=== PATIENT | female | born 1940 | race Caucasian/White ===

== ENCOUNTER 2019-04-09 17:17 | Inpatient (IN) ==
--- NOTE | 2019-04-09 17:35 | ERNOTE ---
Neuro HPI ER Record Presenting Symptoms: other - loc and seizures in ambulance Time Seen by Provider: 04/09/19 17:25 Source: family, EMS Exam Limitations: no limitations Allergies/Adverse Reactions: Allergies Allergy/AdvReac Type Severity Reaction Status Date / Time No Known Allergies Allergy Verified 01/17/18 09:40 Home Medications: HOME MEDICATIONS memantine 10 mg tablet 10 mg PO BID 01/17/18 [Last Taken Unknown] ALPRAZolam [Xanax] 0.25 mg PO TID PRN 04/09/19 [Last Taken Unknown] Donepezil HCl 10 mg PO DAILY 04/09/19 [Last Taken Unknown] Pravastatin Sodium 40 mg pe PO DAILY 04/09/19 [Last Taken Unknown] Sertraline HCl [Zoloft] 100 mg pe PO DAILY 04/09/19 [Last Taken Unknown] - History of Present Illness Narrative: History is per her . states that patient is normally quite active with him going for daily walks and she is verbal although confused with her dementia. Yesterday she did become a little more agitated and irritated, not wanting to walk or do things that he asked her to do. Because of this he did start giving her alprazolam, half a tab 3 times daily which did seem to calm her down. He gave her dose this morning she walked with him, talk to him and all of a sudden this afternoon she just sat down. At that point she lost consciousness, was coughing up frothy sputum but no reported seizure disorder. She had no other complaints to this point. EMS was called and transported her to our ER. While in the ambulance she was noted to actively seize and was given nasal versed, half a dose in each nare. She has remained unresponsive since in our ER. But does localize to pain. - Character of Deficits Baseline Cognition: Present: alert but confused Baseline Gait: Present: walks w/o assistance Associated Symptoms: Reports: seizure, decreased responsiveness. Denies: fever/chills Review of Systems - Review of Systems Constitutional: Present: weakness. Absent: fever, chills EYE: Present: no symptoms reported ENT: Present: no symptoms reported Respiratory: Present: cough Cardiology: Absent: chest pain, palpitations Gastrointestinal/Abdominal: Absent: vomiting, diarrhea, eating less Genitourinary: Present: no symptoms reported Musculoskeletal: Present: no symptoms reported Skin: Present: no symptoms reported Neurological: Present: other - does have dementia. Absent: seizure, pre- existing deficit Endocrine: Present: no symptoms reported Hematologic/Lymphatic: Present: no symptoms reported Psych: Present: anxiety Medical History (Last Reviewed 04/09/19 @ 18:55 by Josh Richard MD) Hypocholesterolemia (Chronic) Onset Date: Unknown Depression (Chronic) Onset Date: Unknown Alzheimer disease (Chronic) Onset Date: Unknown Surgical History: Surgical History (Last Reviewed 04/09/19 @ 18:55 by Josh Richard MD) History of carpal tunnel release Onset Date: Unknown History of hysterectomy Onset Date: ~2002 Family History: Family History (Last Reviewed 04/09/19 @ 18:55 by Josh Richard MD) Father Diabetes Mother Diabetes Social History: (Last Reviewed 04/09/19 @ 18:55 by Josh Richard MD) Social History: Marital status: Service: No Tobacco: Smoking Status: Former smoker Alcohol: alcohol intake: never Substance Use: substance use type: does not use Dietary Habits: caffeine: Yes Physical Exam - Physical Exam General Appearance: Present: no apparent distress, other - unresponsive except to painful stimuli, stiff extremities. Head Exam: Present: normal inspection, no evidence of injury Eye Exam: PERRL: bilateral - pupils pinpoint christina, with questionable lateral movement following light, but no superior or inferior gaze. Ears, Nose, Throat: Present: normal ENT inspection, dry mucous membranes, other - dental caries on lower left canine Neck: Present: normal inspection, supple Respiratory: Present: no respiratory distress, normal breath sounds, no accessory muscle use, lungs clear Gastrointestinal/Abdominal: Present: normal bowel sounds, nontender, nondistended, soft, no organomegaly Extremity Exam: Present: normal inspection Neurological Exam: Present: other - still extremities. has gag reflex. normal babinski Skin Exam: Present: normal color, warm/dry Lymphatic Exam: Present: no adenopathy Anup Coma Scale - Assess Eye Opening: None Motor: Localizes to Pain Verbal: Confused - Total Coma Scale Total: 10 Progress - Results and Orders Patient's Lab Results:: I have reviewed the patient's lab results. - Vital Signs Patient's Vital Signs:: I have reviewed the patient's vital signs. - X-Ray X-Ray #1 X-Ray: chest Interpretation: Interp. by me X-ray Comments: negative for pneumonia or CHF - CT/Ultrasound CT/Ultrasound Narrative: Global parenchymal loss and chronic microvascular disease, no acute bleed. NPH cannot be excluded. - Progress/Reassessment Chief Complaint: Loss of Consciousness Progress:: Unchanged Progress Note-Subjective: 04/09/19 20:09 Pt. did wake up after starting NS bolus and did verbalize and open eyes. She did this briefly and then once again closed eyes and would only respond to painful stimuli. HR has come down into the 50's after fluid bolus, though BP's remain in the 90's. Repeat EKG showed bradycardia but sinus rhythm. 04/09/19 20:25 Case was discussed with Dr. Fan. Given patient's decreased level of consciousness, new onset seizures and hypernatremia will admit acute inpatient. 04/09/19 21:36 pt. continued to have issues with maintaining systolic blood pressures in her normal range of > 100. An additional bolus of NS was started and her SBP went up into the 130's and she was more alert, so reduced the rate to 100ml/hr and transfered her to the floor. - Transfer of Care Expected Disposition: Admit Plan - Plan Plan: Plan to admit to acute inpatient for IV fluids, correction of her hypernatremia and monitor for any further seizures and to be sure she returns to baseline status of being ambulatory. She may need PT, but will defer to admitting physician to assess for this. Departure Clinical Impression: Seizure, Loss of consciousness, Hypernatremia - Departure Disposition: Still a patient Condition: Poor
[2019-04-09 17:42] LABS: Cocaine Ur Negative (NEGATIVE); Urine Barbiturate Negative (NEGATIVE); Urine Benzodiazepines Negative (NEGATIVE); Urine Opiates Negative (NEGATIVE); Urine PCP Negative (NEGATIVE); Urine THC Negative (NEGATIVE)
[2019-04-09 17:44] LABS: Urine Appearance Clear (CLEAR); Urine Bilirubin Negative (NEGATIVE); Urine Color Yellow; Urine Ketone Negative (NEGATIVE)
[2019-04-09 17:45] LABS: Hematocrit 41.4 % (37.0-47.0); Hemoglobin 12.9 gm/dL (12.5-16.0); Mean Cell Volume 97.6 fl (78-100); Mean Corpuscular Hemoglobin 30.4 pg (27-31); Mean Corpuscular Hgb Conc 31.2 g/dl (32-36); Mean Platelet Volume 10.5 fl (8-12.5); Neutrophil # 2.3 K/mm3 (1.3-6.0); Neutrophil % 58.2 % (42-75.0); Platelet Count 150 K/mm3 (150-450); Red Blood Count 4.24 M/mm3 (4.2-5.4); Red Cell Distribution Width 14.1 % (11.5-14.0); Urine Bacteria None Seen; Urine Blood 5 /ul (NEGATIVE); Urine Nitrite Negative (NEGATIVE); Urine Protein 100 mg/dL (NEGATIVE); Urine RBC None Seen /hpf (0-5); Urine Urobilinogen Normal (NORMAL); Urine WBC 0-5 /hpf (0-5); Urine pH 5.5 pH (5.0-7.0)
[2019-04-09 18:14] LABS: ALT 65 U/L (19-67); AST 51 U/L (0-48); Albumin * 3.2 gm/dl (3.4-5.0); Alkaline Phosphatase * 100 U/L (50-170); Anion Gap 15.5 mmol/L (6.8-13.8); BUN/Creatinine Ratio 35.3 (9.0-21.6); Bilirubin, Total 0.2 mg/dL (0.0-1.1); Blood Urea Nitrogen 30 mg/dL (3-23); Ca. Corrected For Albumin 9.2 mg/dL (8.4-10.2); Calcium * 8.9 mg/dL (7.9-10.9); Carbon Dioxide 29.5 mmol/L (24-32.6); Chloride 108 mmol/L (97-106); Glucose * 132 mg/dL (70-110); Sodium 149 mmol/L (132-142); Total Protein 6.7 gm/dL (6.2-8.2); Troponin I Less than 0.017 ng/mL (0.00-0.10)
[2019-04-09] MEDS ORDERED: DEXTROSE 5 % IN WATER 1,000 ML IV PRN (18:41)
[2019-04-09] MEDS ORDERED: NORMAL SALINE 1,000 ML IV PRN ×2 (19:02→21:29)
[2019-04-09] MEDS ORDERED: NORMAL SALINE 1,000 ML IV ONE (20:49)
[2019-04-09] MEDS ORDERED: ALPRAZolam 0.25 MG TABLET PO PRN (22:06)
[2019-04-09] MEDS: MEMANTINE HCL 10 MG TABLET PO SCH (22:27)
[2019-04-09] MEDS ORDERED: SIMVASTATIN 20 MG TABLET PO SCH (23:00)
[2019-04-09] MEDS ORDERED: SERTRALINE HCL 50 MG TABLET PO SCH (23:00)
[2019-04-10 06:40] LABS: Albumin * 2.6 gm/dl (3.4-5.0); Anion Gap 11.6 mmol/L (6.8-13.8); BUN/Creatinine Ratio 35.5 (9.0-21.6); Bilirubin, Total 0.3 mg/dL (0.0-1.1); Ca. Corrected For Albumin 8.9 mg/dL (8.4-10.2); Calcium * 8.1 mg/dL (7.9-10.9); Carbon Dioxide 29.2 mmol/L (24-32.6); Potassium 3.8 mmol/L (3.4-4.6); Total Protein 5.5 gm/dL (6.2-8.2)
[2019-04-10] MEDS ORDERED: DONEPEZIL HCL 10 MG TABLET PO SCH (09:00)
[2019-04-10] MEDS: MEMANTINE HCL 10 MG TABLET PO SCH (09:21)
--- NOTE | 2019-04-10 09:23 | HP ---
Chief Complaint - Chief Complaint Date of Service: 04/10/19 Time of Service: 09:22 Medical History (Last Reviewed 04/09/19 @ 22:09 by Patrick Cm RN) Hypocholesterolemia (Chronic) Onset Date: Unknown Depression (Chronic) Onset Date: Unknown Alzheimer disease (Chronic) Onset Date: Unknown Surgical History: Surgical History (Last Reviewed 04/09/19 @ 22:09 by Patrick Cm RN) History of carpal tunnel release Onset Date: Unknown History of hysterectomy Onset Date: ~2002 Family History: Family History (Last Reviewed 04/09/19 @ 22:09 by Patrick Cm RN) Father Diabetes Mother Diabetes Social History: (Last Reviewed 04/09/19 @ 22:09 by Patrick Cm RN) Social History: Marital status: Service: No Tobacco: Smoking Status: Former smoker Alcohol: alcohol intake: never Substance Use: substance use type: does not use Dietary Habits: caffeine: Yes Allergies/Adverse Reactions: Allergies Allergy/AdvReac Type Severity Reaction Status Date / Time No Known Allergies Allergy Verified 04/09/19 22:09 Home Medications: HOME MEDICATIONS memantine 10 mg tablet 10 mg PO BID 01/17/18 [Last Taken Unknown] ALPRAZolam [Xanax] 0.25 mg PO TID PRN 04/09/19 [Last Taken Unknown] Donepezil HCl 10 mg PO DAILY 04/09/19 [Last Taken Unknown] Pravastatin Sodium 40 mg pe PO DAILY 04/09/19 [Last Taken Unknown] Sertraline HCl [Zoloft] 100 mg pe PO DAILY 04/09/19 [Last Taken Unknown] Exam - Exam Vital Signs: Vital Signs - Last Taken Temp 36.4 C 04/10/19 06:32 Pulse 64 04/10/19 06:32 Resp 10 L 04/10/19 06:32 BP 92/41 04/10/19 06:32 Pulse Ox 96 04/10/19 06:32 Diagnostic Studies: Abnormal Lab Results 04/09/19 04/09/19 04/09/19 Range/Units 17:30 17:30 17:30 MCHC 31.2 L (32-36) g/dl RDW 14.1 H (11.5-14.0) % Immature Gran % (Auto) 1.00 H (0.001-0.429) % Immature Gran # (Auto) 0.04 H (0.000-0.0310) K/mm3 Lymphocytes # 1.22 L (1.5-3.5) k/mm3 Sodium 149 H (132-142) mmol/L Plasma Sodium 150 H (130-142) mmol/L Chloride 108 H (97-106) mmol/L Anion Gap 15.5 H (6.8-13.8) mmol/L BUN 30 H (3-23) mg/dL BUN/Creatinine Ratio 35.3 H (9.0-21.6) Random Glucose 132 H (70-110) mg/dL AST 51 H (0-48) U/L Total Protein (6.2-8.2) gm/dL Albumin 3.2 L (3.4-5.0) gm/dl Urine Protein 100 H (NEGATIVE) mg/dL Urine Blood 5 H (NEGATIVE) /ul Prot Sulfosalicylic Acd 4+ H (0) mg/dL 04/10/19 Range/Units 06:08 MCHC (32-36) g/dl RDW (11.5-14.0) % Immature Gran % (Auto) (0.001-0.429) % Immature Gran # (Auto) (0.000-0.0310) K/mm3 Lymphocytes # (1.5-3.5) k/mm3 Sodium 145 H (132-142) mmol/L Plasma Sodium 145 H (130-142) mmol/L Chloride 108 H (97-106) mmol/L Anion Gap (6.8-13.8) mmol/L BUN (3-23) mg/dL BUN/Creatinine Ratio 35.5 H (9.0-21.6) Random Glucose (70-110) mg/dL AST (0-48) U/L Total Protein 5.5 L (6.2-8.2) gm/dL Albumin 2.6 L (3.4-5.0) gm/dl Urine Protein (NEGATIVE) mg/dL Urine Blood (NEGATIVE) /ul Prot Sulfosalicylic Acd (0) mg/dL Laboratory Results WBC 4.0 K/mm3 (4.0-10.5) 04/09/19 17:30 RBC 4.24 M/mm3 (4.2-5.4) 04/09/19 17:30 Hgb 12.9 gm/dL (12.5-16.0) 04/09/19 17:30 Hct 41.4 % (37.0-47.0) 04/09/19 17:30 MCV 97.6 fl (78-100) 04/09/19 17:30 MCH 30.4 pg (27-31) 04/09/19 17: MCHC 31.2 g/dl (32-36) L 04/09/19 17:30 RDW 14.1 % (11.5-14.0) H 04/09/19 17:30 Plt Count 150 K/mm3 (150-450) 04/09/19 17:30 MPV 10.5 fl (8-12.5) 04/09/19 17:30 Immature Gran % (Auto) 1.00 % (0.001-0.429) H 04/09/19 17: Immature Gran # (Auto) 0.04 K/mm3 (0.000-0.0310) H 04/09/19 17:30 Neutrophils % 58.2 % (42-75.0) 04/09/19 17:30 Lymphocytes % 30.7 % (20-51) 04/09/19 17:30 Monocytes % 8.3 % (0.0-9) 04/09/19 17:30 Eosinophils % 1.0 % (0.0-3.0) 04/09/19 17: Basophils % 0.8 % (0.0-1.0) 04/09/19 17: Nucleated RBC % 0.0 k/mm3 (0-1) 04/09/19 17:30 Neutrophils # 2.3 K/mm3 (1.3-6.0) 04/09/19 17:30 Lymphocytes # 1.22 k/mm3 (1.5-3.5) L 04/09/19 17: Monocytes # 0.3 k/mm3 (0.0-1.0) 04/09/19 17: Eosinophils # 0.0 k/mm3 (0.0-0.7) 04/09/19 17: Absolute Basophils 0.0 k/mm3 (0.0-0.1) 04/09/19 17:30 Sodium 145 mmol/L (132-142) H 04/10/19 06:08 Plasma Sodium 145 mmol/L (130-142) H 04/10/19 06:08 Potassium 3.8 mmol/L (3.4-4.6) 04/10/19 06:08 Chloride 108 mmol/L (97-106) H 04/10/19 06:08 Carbon Dioxide 29.2 mmol/L (24-32.6) 04/10/19 06:08 Anion Gap 11.6 mmol/L (6.8-13.8) 04/10/19 06:08 BUN 22 mg/dL (3-23) 04/10/19 06:08 Creatinine 0.62 mg/dL (0.4-1.4) 04/10/19 06:08 Est GFR (Non-Af Amer) 99 mL/min (60-130) D 04/10/19 06:08 BUN/Creatinine Ratio 35.5 (9.0-21.6) H 04/10/19 06:08 Random Glucose 108 mg/dL (70-110) 04/10/19 06:08 Calcium 8.1 mg/dL (7.9-10.9) 04/10/19 06:08 Calcium Adj for Albumin 8.9 mg/dL (8.4-10.2) 04/10/19 06:08 Total Bilirubin 0.3 mg/dL (0.0-1.1) 04/10/19 06:08 AST 39 U/L (0-48) 04/10/19 06:08 ALT 51 U/L (19-67) 04/10/19 06:08 Alkaline Phosphatase 81 U/L (50-170) 04/10/19 06:08 Troponin I Less than 0.017 ng/mL (0.00-0.10) 04/09/19 17:30 Total Protein 5.5 gm/dL (6.2-8.2) L 04/10/19 06:08 Albumin 2.6 gm/dl (3.4-5.0) L 04/10/19 06:08 Urine Color Yellow 04/09/19 17:30 Urine Appearance Clear (CLEAR) 04/09/19 17:30 Urine pH 5.5 pH (5.0-7.0) 04/09/19 17:30 Ur Specific [place] 1.030 SP.GR. (1.005-1.010) 04/09/19 17:30 Urine Protein 100 mg/dL (NEGATIVE) H 04/09/19 17:30 Urine Glucose (UA) Negative mg/dL (NEGATIVE) 04/09/19 17:30 Urine Ketones Negative mg/dL (NEGATIVE) 04/09/19 17:30 Urine Blood 5 /ul (NEGATIVE) H 04/09/19 17:30 Urine Nitrate Negative (NEGATIVE) 04/09/19 17:30 Urine Bilirubin Negative mg/dl (NEGATIVE) 04/09/19 17:30 Prot Sulfosalicylic Acd 4+ mg/dL (0) H 04/09/19 17:30 Urine Urobilinogen Normal EU/dl (NORMAL) 04/09/19 17:30 Ur Leukocyte Esterase Negative /ul (NEGATIVE) 04/09/19 17:30 Urine RBC None seen /hpf (0-5) 04/09/19 17:30 Urine WBC 0-5 /hpf (0-5) 04/09/19 17:30 Ur Epithelial Cells 0-5 /hpf (0-5) 04/09/19 17:30 Urine Bacteria None seen (NONE) 04/09/19 17:30 Urine Culture Comments No culture indicated 04/09/19 17:30 Urine Opiates Screen Negative (NEGATIVE) 04/09/19 17:30 Barbiturate Screen Negative (NEGATIVE) 04/09/19 17:30 Ur Phencyclidine Scrn Negative (NEGATIVE) 04/09/19 17:30 Urine Amphetamine Negative (NEGATIVE) 04/09/19 17:30 U Benzodiazepines Scrn Negative (NEGATIVE) 04/09/19 17:30 Urine Cocaine Screen Negative (NEGATIVE) 04/09/19 17:30 Urine Marijuana (THC) Negative (NEGATIVE) 04/09/19 17:30
--- NOTE | 2019-04-10 17:44 | HPDIS ---
Chief Complaint - Chief Complaint Date of Service: 04/10/19 Time of Service: 17:44 Chief Complaint: New onseet seizure History of Present Illness: 78 year old female with advanced dementia was brought into the ER by EMS after she became unresponsive while walking with her . She does this most days, but on day of admit she was slightly more agitated in which her gave her a dose of ativan. While walking she sat down and was unable to respond to her . He notes that she becoming "frothy" at the [facility] [place] per ER doc. No active seizures seen then. EMS was called and they reported seizing in the ambulance. She was given ativan. In the ER she was post-ictal but responded to painful stimuli. She has never had a seizure before. Only real lab abnormality was elevated Sodium at 150, she also was slightly tachycardic. She received NS bolus and her tachycardia resolved. She was brought in to be watched over night. When seen, patient was unresponsive other then to chest rub. Medical History (Last Reviewed 04/09/19 @ 22:09 by Patrick Cm RN) Hypocholesterolemia (Chronic) Onset Date: Unknown Depression (Chronic) Onset Date: Unknown Alzheimer disease (Chronic) Onset Date: Unknown Surgical History: Surgical History (Last Reviewed 04/09/19 @ 22:09 by Patrick Cm RN) History of carpal tunnel release Onset Date: Unknown History of hysterectomy Onset Date: ~2002 Family History: Family History (Last Reviewed 04/09/19 @ 22:09 by Patrick Cm RN) Father Diabetes Mother Diabetes Social History: (Last Reviewed 04/09/19 @ 22:09 by Patrick Cm RN) Social History: Marital status: Service: No Tobacco: Smoking Status: Former smoker Alcohol: alcohol intake: never Substance Use: substance use type: does not use Dietary Habits: caffeine: Yes Review Of Systems (GEN) - Review of Systems Additional Comments: unable to obtain due to dementia and somnolence Allergies/Adverse Reactions: Allergies Allergy/AdvReac Type Severity Reaction Status Date / Time No Known Allergies Allergy Verified 04/09/19 22:09 Home Medications: HOME MEDICATIONS memantine 10 mg tablet 10 mg PO BID 01/17/18 [Last Taken Unknown] Donepezil HCl 10 mg PO DAILY 04/09/19 [Last Taken Unknown] Pravastatin Sodium 40 mg pe PO DAILY 04/09/19 [Last Taken Unknown] Sertraline HCl [Zoloft] 100 mg pe PO DAILY 04/09/19 [Last Taken Unknown] alprazolam 0.25 mg tablet 0.25 mg PO TID PRN #30 tab 04/10/19 [Last Taken Unknown] Exam - Exam Vital Signs: Vital Signs - Last Taken Temp 37 C 04/10/19 14:27 Pulse 67 04/10/19 15:58 Resp 18 04/10/19 14:27 BP 88/34 L 04/10/19 14:27 Pulse Ox 96 04/10/19 14:27 Constitutional: Present: Somnolent, Elderly Eye Exam: bilateral eye: PERRL Neck: Present: supple. Absent: lymphadenopathy (R), lymphadenopathy (L) Respiratory: Present: lungs clear, normal breath sounds, no respiratory distress Cardiovascular/Chest: Present: regular rate, rhythm, no murmur Diagnostic Studies: Abnormal Lab Results 04/09/19 04/09/19 04/09/19 Range/Units 17:30 17:30 17:30 MCHC 31.2 L (32-36) g/dl RDW 14.1 H (11.5-14.0) % Immature Gran % (Auto) 1.00 H (0.001-0.429) % Immature Gran # (Auto) 0.04 H (0.000-0.0310) K/mm3 Lymphocytes # 1.22 L (1.5-3.5) k/mm3 Sodium 149 H (132-142) mmol/L Plasma Sodium 150 H (130-142) mmol/L Chloride 108 H (97-106) mmol/L Anion Gap 15.5 H (6.8-13.8) mmol/L BUN 30 H (3-23) mg/dL BUN/Creatinine Ratio 35.3 H (9.0-21.6) Random Glucose 132 H (70-110) mg/dL AST 51 H (0-48) U/L Total Protein (6.2-8.2) gm/dL Albumin 3.2 L (3.4-5.0) gm/dl Urine Protein 100 H (NEGATIVE) mg/dL Urine Blood 5 H (NEGATIVE) /ul Prot Sulfosalicylic Acd 4+ H (0) mg/dL 04/10/19 Range/Units 06:08 MCHC (32-36) g/dl RDW (11.5-14.0) % Immature Gran % (Auto) (0.001-0.429) % Immature Gran # (Auto) (0.000-0.0310) K/mm3 Lymphocytes # (1.5-3.5) k/mm3 Sodium 145 H (132-142) mmol/L Plasma Sodium 145 H (130-142) mmol/L Chloride 108 H (97-106) mmol/L Anion Gap (6.8-13.8) mmol/L BUN (3-23) mg/dL BUN/Creatinine Ratio 35.5 H (9.0-21.6) Random Glucose (70-110) mg/dL AST (0-48) U/L Total Protein 5.5 L (6.2-8.2) gm/dL Albumin 2.6 L (3.4-5.0) gm/dl Urine Protein (NEGATIVE) mg/dL Urine Blood (NEGATIVE) /ul Prot Sulfosalicylic Acd (0) mg/dL Microbiology 04/09/19 17:30 Blood Culture - Preliminary Blood NO GROWTH 24 HOURS Laboratory Results WBC 4.0 K/mm3 (4.0-10.5) 04/09/19 17:30 RBC 4.24 M/mm3 (4.2-5.4) 04/09/19 17:30 Hgb 12.9 gm/dL (12.5-16.0) 04/09/19 17:30 Hct 41.4 % (37.0-47.0) 04/09/19 17:30 MCV 97.6 fl (78-100) 04/09/19 17:30 MCH 30.4 pg (27-31) 04/09/19 17:30 MCHC 31.2 g/dl (32-36) L 04/09/19 17:30 RDW 14.1 % (11.5-14.0) H 04/09/19 17:30 Plt Count 150 K/mm3 (150-450) 04/09/19 17:30 MPV 10.5 fl (8-12.5) 04/09/19 17:30 Immature Gran % (Auto) 1.00 % (0.001-0.429) H 04/09/19 17:30 Immature Gran # (Auto) 0.04 K/mm3 (0.000-0.0310) H 04/09/19 17:30 Neutrophils % 58.2 % (42-75.0) 04/09/19 17:30 Lymphocytes % 30.7 % (20-51) 04/09/19 17:30 Monocytes % 8.3 % (0.0-9) 04/09/19 17: Eosinophils % 1.0 % (0.0-3.0) 04/09/19 17: Basophils % 0.8 % (0.0-1.0) 04/09/19 17: Nucleated RBC % 0.0 k/mm3 (0-1) 04/09/19 17: Neutrophils # 2.3 K/mm3 (1.3-6.0) 04/09/19 17: Lymphocytes # 1.22 k/mm3 (1.5-3.5) L 04/09/19 17: Monocytes # 0.3 k/mm3 (0.0-1.0) 04/09/19 17: Eosinophils # 0.0 k/mm3 (0.0-0.7) 04/09/19 17: Absolute Basophils 0.0 k/mm3 (0.0-0.1) 04/09/19 17:30 Sodium 145 mmol/L (132-142) H 04/10/19 06:08 Plasma Sodium 145 mmol/L (130-142) H 04/10/19 06:08 Potassium 3.8 mmol/L (3.4-4.6) 04/10/19 06:08 Chloride 108 mmol/L (97-106) H 04/10/19 06:08 Carbon Dioxide 29.2 mmol/L (24-32.6) 04/10/19 06:08 Anion Gap 11.6 mmol/L (6.8-13.8) 04/10/19 06:08 BUN 22 mg/dL (3-23) 04/10/19 06:08 Creatinine 0.62 mg/dL (0.4-1.4) 04/10/19 06:08 Est GFR (Non-Af Amer) 99 mL/min (60-130) D 04/10/19 06:08 BUN/Creatinine Ratio 35.5 (9.0-21.6) H 04/10/19 06:08 Random Glucose 108 mg/dL (70-110) 04/10/19 06:08 Calcium 8.1 mg/dL (7.9-10.9) 04/10/19 06:08 Calcium Adj for Albumin 8.9 mg/dL (8.4-10.2) 04/10/19 06:08 Total Bilirubin 0.3 mg/dL (0.0-1.1) 04/10/19 06:08 AST 39 U/L (0-48) 04/10/19 06:08 ALT 51 U/L (19-67) 04/10/19 06:08 Alkaline Phosphatase 81 U/L (50-170) 04/10/19 06:08 Troponin I Less than 0.017 ng/mL (0.00-0.10) 04/09/19 17:30 Total Protein 5.5 gm/dL (6.2-8.2) L 04/10/19 06:08 Albumin 2.6 gm/dl (3.4-5.0) L 04/10/19 06:08 Urine Color Yellow 04/09/19 17:30 Urine Appearance Clear (CLEAR) 04/09/19 17:30 Urine pH 5.5 pH (5.0-7.0) 04/09/19 17:30 Ur Specific [place] 1.030 SP.GR. (1.005-1.010) 04/09/19 17:30 Urine Protein 100 mg/dL (NEGATIVE) H 04/09/19 17:30 Urine Glucose (UA) Negative mg/dL (NEGATIVE) 04/09/19 17:30 Urine Ketones Negative mg/dL (NEGATIVE) 04/09/19 17:30 Urine Blood 5 /ul (NEGATIVE) H 04/09/19 17:30 Urine Nitrate Negative (NEGATIVE) 04/09/19 17:30 Urine Bilirubin Negative mg/dl (NEGATIVE) 04/09/19 17:30 Prot Sulfosalicylic Acd 4+ mg/dL (0) H 04/09/19 17:30 Urine Urobilinogen Normal EU/dl (NORMAL) 04/09/19 17:30 Ur Leukocyte Esterase Negative /ul (NEGATIVE) 04/09/19 17:30 Urine RBC None seen /hpf (0-5) 04/09/19 17:30 Urine WBC 0-5 /hpf (0-5) 04/09/19 17:30 Ur Epithelial Cells 0-5 /hpf (0-5) 04/09/19 17:30 Urine Bacteria None seen (NONE) 04/09/19 17:30 Urine Culture Comments No culture indicated 04/09/19 17:30 Urine Opiates Screen Negative (NEGATIVE) 04/09/19 17:30 Barbiturate Screen Negative (NEGATIVE) 04/09/19 17:30 Ur Phencyclidine Scrn Negative (NEGATIVE) 04/09/19 17:30 Urine Amphetamine Negative (NEGATIVE) 04/09/19 17:30 U Benzodiazepines Scrn Negative (NEGATIVE) 04/09/19 17:30 Urine Cocaine Screen Negative (NEGATIVE) 04/09/19 17: Urine Marijuana (THC) Negative (NEGATIVE) 04/09/19 17:30 Assessment/Plan - Narrative Narrative: Patient brought in to the hospital due to new onset seizure and somnolence. Ct head did not show any acute pathology. Normal saline was continued. When she was seen this morning, she was back to her baseline dementia per . Her Na had returned to normal. Her vitals were stable and she was afebrile. wanted to take her home. No changes to her chronic medications. She was discharged home in stable but guarded condition. - Assessment/Plan (1) Seizure Problem: Resolved (2) Hypernatremia Problem: Resolved (3) Alzheimer disease Problem: Chronic (1) Seizure Problem: Acute (2) Hypernatremia Problem: Acute (3) Alzheimer disease Problem: Chronic Date of Discharge:: 04/10/19 Hospital Course: Patient brought in to the hospital due to new onset seizure and somnolence. Ct head did not show any acute pathology. Normal saline was continued. When she was seen this morning, she was back to her baseline dementia per . Her Na had returned to normal. Her vitals were stable and she was afebrile. wanted to take her home. No changes to her chronic medications. She was discharged home in stable but guarded condition. Procedures Performed: none Results and Findings: Pending Mircobiology Results 04/09/19 17:30 Blood Blood Culture - Preliminary NO GROWTH 24 HOURS Lab Pending Results 04/09/1930: WBC 4.0, RBC 4.24, Hgb 12.9, Hct 41.4, MCV 97.6, MCH 30.4, MCHC 31.2 L, RDW 14.1 H, Plt Count 150, MPV 10.5, Immature Gran % (Auto) 1.00 H, Immature Gran # (Auto) 0.04 H, Neutrophils % 58.2, Lymphocytes % 30.7, Monocytes % 8.3, Eosinophils % 1.0, Basophils % 0.8, Nucleated RBC % 0.0, Neutrophils # 2.3, Lymphocytes # 1.22 L, Monocytes # 0.3, Eosinophils # 0.0, Absolute Basophils 0.0 04/09/19 17:30: Sodium 149 H, Plasma Sodium 150 H, Potassium 4.0, Chloride 108 H, Carbon Dioxide 29.5, Anion Gap 15.5 H, BUN 30 H, Creatinine 0.85, Est GFR (Non-Af Amer) 69 D, BUN/Creatinine Ratio 35.3 H, Random Glucose 132 H, Calcium 8.9, Calcium Adj for Albumin 9.2, Total Bilirubin 0.2, AST 51 H, ALT 65, Alkaline Phosphatase 100, Troponin I Less than 0.017, Total Protein 6.7, Albumin 3.2 L 04/09/19 17:30: Urine Color Yellow, Urine Appearance Clear, Urine pH 5.5, Ur Specific [place] 1.030, Urine Protein 100 H, Urine Glucose (UA) Negative, Urine Ketones Negative, Urine Blood 5 H, Urine Nitrate Negative, Urine Bilirubin Negative, Prot Sulfosalicylic Acd 4+ H, Urine Urobilinogen Normal, Ur Leukocyte Esterase Negative, Urine RBC None seen, Urine WBC 0-5, Ur Epithelial Cells 0-5, Urine Bacteria None seen, Urine Culture Comments No culture indicated 04/09/19 17:30: Urine Opiates Screen Negative, Barbiturate Screen Negative, Ur Phencyclidine Scrn Negative, Urine Amphetamine Negative, U Benzodiazepines Scrn Negative, Urine Cocaine Screen Negative, Urine Marijuana (THC) Negative 04/10/19 06:08: Sodium 145 H, Plasma Sodium 145 H, Potassium 3.8, Chloride 108 H, Carbon Dioxide 29.2, Anion Gap 11.6, BUN 22, Creatinine 0.62, Est GFR (Non-Af Amer) 99 D, BUN/Creatinine Ratio 35.5 H, Random Glucose 108, Calcium 8.1, Calcium Adj for Albumin 8.9, Total Bilirubin 0.3, AST 39, ALT 51, Alkaline Phosphatase 81, Total Protein 5.5 L, Albumin 2.6 L Discharge Location: Home Disposition: Home self-care Condition: Poor Discharge Activity: Activity as tolerated Discharge Diet: General/regular food Referrals: Raquel Vick MD [Primary Care Provider] - Complete Home Medications List: Complete Home Medication List: memantine 10 mg tablet 10 mg PO BID 01/17/18 Donepezil HCl 10 mg PO DAILY 04/09/19 Pravastatin Sodium 40 mg pe PO DAILY 04/09/19 Sertraline HCl [Zoloft] 100 mg pe PO DAILY 04/09/19 alprazolam 0.25 mg tablet 0.25 mg PO TID PRN #30 tab 04/10/19
[2019-04-10 18:56] VITALS: BP 128/48
== END 2019-04-10 19:40 | disposition home or self-care (01) | DRG 101 ==
LOC: ER 17:17 → MS 20:26
PROVIDERS: ADMIT Family Medicine; ATTEND Family Medicine
DX: Z87.891 Personal history of nicotine dependence; G30.9 Alzheimer's disease, unspecified; R40.2423 Glasgow coma scale score 9-12, at hospital admission; F02.80 Dementia in other diseases classified elsewhere, unspecified severity, without behavioral disturbance, psychotic disturbance, mood disturbance, and anxiety; F32.9 Major depressive disorder, single episode, unspecified; E87.0 Hyperosmolality and hypernatremia; R56.9 Unspecified convulsions
CPT/HCPCS: 36415; 70450; 71010; 71045; 80053; 80307; 81001; 84484; 85025; 87040; 93005; 96361; 96365; 99283; 99285